=== PATIENT | male | born 2000 | race African-American/Black ===

== ENCOUNTER 2019-06-09 03:14 | Emergency (ER) | payer SELFPAY ==
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
[2019-06-09 03:18] VITALS: BP 141/89; PULSE 60; RESP 17; TEMP 36.7; O2SAT 100
[2019-06-09] MEDS: ONDANSETRON HCL ODT 4 MG TABLET 8 MG PO (04:25)
[2019-06-09] MEDS: HYDROMORPHONE HCL 1 MG/ML INJ IM (04:26)
[2019-06-09 04:31] VITALS: BP 144/78; PULSE 66; RESP 16; O2SAT 99
[2019-06-09 04:56] VITALS: TEMP 36.7
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
[2019-06-09 06:24] VITALS: BP 125/76; PULSE 59; RESP 14; TEMP 35.7; O2SAT 100
== END 2019-06-09 06:27 | disposition home or self-care (01) ==
PROVIDERS: Emergency Provider General Practice
DX: K04.7 Periapical abscess without sinus (principal)
CPT/HCPCS: 70486; 96372; 99284; A9270; J1170

== ENCOUNTER 2019-08-14 11:01 | Emergency (ER) | payer BC, SELFPAY ==
[2019-08-14] VITALS (10 sets, daily range): BP systolic 101–130; BP diastolic 55–87; PULSE 67–95; RESP 14–29; TEMP 36.2; O2SAT 97–100
[2019-08-14] MEDS: DEXTROSE 50% 25 GM/50 ML SYRINGE IV PUSH (11:05)
[2019-08-14] MEDS: ONDANSETRON INJ 4 MG/2 ML VIAL IV PUSH (11:19)
[2019-08-14] MEDS: SODIUM CHLORIDE 0.9% IV 1,000 ML 999 ML IV CONT ×2 (11:22→14:01)
--- NOTE | 2019-08-14 11:31 | PC.NURSE ---
Pt c/o severe pain at left upper arm IV site, note area tender and swollen. Warm blanket given for comfort. Preparing to reestablish IV and continue infusion.
[2019-08-14] MEDS: FAMOTIDINE 20 MG/2 ML VIAL IV PUSH (11:38)
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
[2019-08-14 12:16] LABS: Basophils Percent Auto 0.3 % (0.2-1.2); Eosinophils Percent Auto 0.3 % (0-4.4); Hematocrit 46.3 % (42.0-52.0); Hemoglobin 15.4 g/dL (14.0-18.0); Immature Granulocyte Absolute 0.05 K/mm3 (0.00-0.031); Immature Granulocyte Percent A 0.5 % (0-0.5); Lymphocytes Absolute Auto 1.78 K/mm3 (0.9-3.2); Lymphocytes Percent Auto 17.2 % (18.3-44.2); Mean Corpuscular HGB Conc 33.3 g/dl (32-36); Mean Corpuscular Hemoglobin 30.7 pg (26-34); Mean Corpuscular Volume 92.4 fl (80-100); Mean Platelet Volume 11.4 fl (7.4-10.4); Monocytes Absolute Auto 0.4 K/mm3 (0.1-0.6); Monocytes Percent Auto 3.6 % (2.6-8.5); Neutrophils Absolute Auto 8.1 K/mm3 (1.3-6.7); Neutrophils Percent Auto 78.1 % (45.5-73.1); Platelet Count Result 229 k/mm3 (150-375); Red Blood Count 5.01 M/mm3 (4.6-6.20); Red Cell Distribution Width 12.8 % (11.5-14.5); White Blood Count 10.3 K/mm3 (4.5-10.0)
[2019-08-14] MEDS: PROMETHAZINE HCL 25 MG/ML AMPUL 12.5 MG IV PUSH (12:19)
[2019-08-14] MEDS: MORPHINE SULFATE 4 MG/ML INJ IV PUSH (12:20)
[2019-08-14] MEDS: SODIUM CHLORIDE 0.9% IV 50 ML 125 ML (12:27)
[2019-08-14 12:29] LABS: Alanine Aminotransferase 24 U/L (4-50); Albumin Level 5.4 g/dL (3.5-5.1); Alkaline Phosphatase 95 U/L (38-126); Aspartate Amino Transferase 52 U/L (17-59); Bilirubin,Total 1.6 mg/dL (0.2-1.3); Blood Urea Nitrogen 15 mg/dL (9-20); Carbon Dioxide 25 mmol/L (22-30); Chloride 101 mmol/L (98-107); Estimated CRCL calculation 93 ml/min; Estimated Glomerular Filt Rate > 60; Glucose 233 mg/dL (75-110); Lipase 31 U/L (23-300); Potassium 4.1 mmol/L (3.4-5.0); Sodium 141 mmol/L (137-145)
--- NOTE | 2019-08-14 13:38 | PC.NURSE ---
Pt states he's feeling much better at present. Will attempt to urinate. States that he continues to feel weak. Pt has no nausea and has not vomited x approx 1 hr. Ice chips given po.
[2019-08-14 14:04] LABS: Add Urine Microscopic? YES; Appearance Urine Clear (Clear); Bacteria Urine Trace /hpf; Bilirubin Urine Negative (Negative); Blood Urine Negative (Negative); Color Urine Yellow (Yellow); Glucose Urine UA 2+ mg/dL (Negative); Ketones Urine 1+ mg/dL (Negative); Leukocyte Esterase Ur Negative LEU/UL (Negative); Mucus Urine Heavy /lpf; Nitrate Urine Negative (Negative); Protein Urine 2+ mg/dL (Negative); RBC Urine 0-2 /hpf (0-2); Specific Grav Ur 1.028 (1.001-1.035); WBC Urine 0-3 /hpf
== END 2019-08-14 16:33 | disposition home or self-care (01) ==
PROVIDERS: Emergency Provider Emergency Medicine
DX: R11.2 Nausea with vomiting, unspecified (principal); R19.7 Diarrhea, unspecified
CPT/HCPCS: 36415; 80053; 81001; 83690; 85025; 96361; 96374; 96375; 99284; J2270; J2405; J2550; J7030

== ENCOUNTER 2020-08-23 13:16 | Emergency (ER) | payer OTHER, SELFPAY ==
[2020-08-23 13:40] VITALS: BP 115/67; PULSE 103; RESP 20; TEMP 36.3; O2SAT 99
--- NOTE | 2020-08-23 13:44 | ED.NAVMDI ---
HPI - Nausea/Vomiting/Diarrhea General Chief complaint: Nausea/Vomiting/Diarrhea Stated complaint: Throwing Up Time Seen by Provider: 08/23/20 13:44 Source: patient Mode of arrival: ambulatory Limitations: no limitations History of Present Illness HPI Narrative: Randy Burnett is a 20-year-old male with no PMH who [facility] nausea vomiting diarrhea after eating suspicious pizza last night. States he started having vomiting after eating about 30 minutes and had last bout of diarrhea this morning at 630. States he still has some cramps but no further vomiting Related Data Allergies Allergy/AdvReac Type Severity Reaction Status Date / Time No Known Allergies Allergy Mild Verified 08/14/19 11:09 Review of Systems Review of Systems: Narrative: CONSTITUTIONAL: Denies fever, chills, sweats. EYES: Denies visual changes, redness, discharge. ENT: Denies rhinorrhea, congestion, sore throat, otalgia. CARDIOVASCULAR: Denies chest pain, palpitations, edema. RESPIRATORY: Denies dyspnea, wheezing, cough GASTROINTESTINAL: Denies abdominal pain, has nausea, vomiting, diarrhea. GENITOURINARY: Denies dysuria, hematuria, abnormal discharge SKIN: Denies rash or itching. NEUROLOGIC: Denies numbness, or focal weakness. PSYCHIATRIC: Denies anxiety or depression. [facility] Past Medical History Medical History Healthy adult Surgical History Surgical History No pertinent past surgical history Social History Social History Smoking status: Never smoker Alcohol intake: never Substance use: never Gender identity (if verbalized by the patient): Male Comments At time of signature, I agree with nursing past medical, surgical, social and family history. There is no relevant family history pertinent to the presenting complaint. Exam Narrative: Exam Narrative: GENERAL: This is a well-nourished, well-developed patient, in mild distress. HEAD: normocephalic, atraumatic. EYES: Sclera clear/white. Vision is grossly intact. EARS: External ears normal, auditory canals clear and without drainage, TMs normal without perforation. Hearing grossly intact. NOSE: External nose normal without nasal discharge, nares without redness, no rhinorrhea. THROAT: Mucous membranes moist, posterior pharynx NECK: Neck supple, non-tender CARDIOVASCULAR: mild tachycardia rate and rhythm without murmurs, gallops, or rubs. RESPIRATORY: Clear to auscultation. Breath sounds equal bilaterally. No wheezes, rales, or rhonchi. GASTROINTESTINAL: Abdomen soft, mild tenderness SKIN: warm, intact with no suspicious lesions or rash, good texture and turgor. NEURO: awake, alert, and oriented to person, place and time. There were no obvious focal neurologic abnormalities. Steady gait EXTREMITIES: Normal range of motion. BACK: Nontender without deformity Course Course Emergency Course: Randy Burnett is a 20-year-old male who comes to [facility] with nausea vomiting diarrhea that started last night after eating pizza; no vomiting since early this morning Given Bentyl for stomach cramps Patient encouraged hydration and given work note Vital Signs Vital signs: Vital Signs Temperature 97.4 F L 08/23/20 13:40 Pulse Rate 103 H 08/23/20 13:40 Respiratory Rate 08/23/20 13:40 Blood Pressure 115/67 08/23/20 13:40 Pulse Oximetry 99 08/23/20 13:40 Temperature 97.4 F L 08/23/20 13:40 Pulse Rate 103 H 08/23/20 13:40 Respiratory Rate 08/23/20 13:40 Blood Pressure 115/67 08/23/20 13:40 Pulse Oximetry 99 08/23/20 13:40 MDM - Nausea/Vomiting/Diarrhea Differential Diagnosis Differential diagnosis: Likely traveler's diarrhea, food poisoning, gastroenteritis, dehydration and other Critical Care Time Critical Care Time Critical Care Time: No Discharge Plan Discharge Clini
== END 2020-08-23 14:09 | disposition home or self-care (01) ==
PROVIDERS: Emergency Provider Nurse Practitioner
DX: K52.9 Noninfective gastroenteritis and colitis, unspecified (principal)
CPT/HCPCS: 99213; G0463

== ENCOUNTER 2020-11-21 15:17 | Emergency (ER) | payer OTHER, SELFPAY ==
[2020-11-21 15:24] VITALS: BP 122/66; PULSE 92; RESP 16; TEMP 37.1; O2SAT 99
--- NOTE | 2020-11-21 15:54 | ED.DENTAL ---
HPI - Dental/Oral General Chief complaint: Dental/Oral Stated complaint: tooth ache Source: patient and RN notes reviewed Limitations: no limitations History of Present Illness HPI Narrative: The patient, a smoker/nondrinker, presents with 2-week worsening of over 2-year history of tooth discomfort. He states he has broken teeth including when he did it himself;he also has several molars with pain, scant swelling. No fever, hoarseness, trismus, swelling now [mostly in the morning]; symptoms are mild, worse with eating and reportedly he has a dentist. Related Data Allergies Allergy/AdvReac Type Severity Reaction Status Date / Time No Known Allergies Allergy Mild Verified 11/21/20 15:29 Review of Systems Review of Systems: General/Constitutional: No weight loss,fever Eyes: N0: Redness,discharge Ears/Nose/Throat: No: Epistaxis,ear discharge Respiratory: Denies: Hemoptysis Gastrointestinal: No Vomiting, Bleeding-rectal Skin: No Lumps, eruption Neurologic: No Focal Weakness,Sz Hematologic: Denies: Petechiae/Purpura Psychiatric: No: Suicida ideationl All Other Systems: Reviewed and Negative PMFSH Past Medical History Medical History Healthy adult Surgical History Surgical History No pertinent past surgical history Social History Social History Smoking status: Never smoker Alcohol intake: never Substance use: never Gender identity (if verbalized by the patient): Male Comments At time of signature, agree with nursing past medical, surgical, social and family history. There is no relevant family history pertinent to the presenting complaint Exam Narrative: General Appearance: Well appearing, Well nourished, Obese EYE: PERRLA, EOMI, Conjunctiva clear Ears: External ear normal, Auditory canal normal Nose: Normal nose Mouth/Throat: Normal appearing (without sig. jaw swelling), Normal lips, MM moist, Uvula midline (scattered dental caries and fillings,, with rare fracture) Neck: Supple, No adenopathy Respiratory: Airway patent, No respiratory distress, Clear to auscultation Cardiovascular: RRR Musculoskeletal: Full ROM, Non tender, Normal strength Spine/Back: Normal ROM Skin: Warm, Dry, Normal color Neurological: A&O x3, Speech clear, CN II-XII intact Psychiatric: Normal mood, Normal affect Course Vital Signs Vital signs: Vital Signs Temperature 98.8 F 11/21/20 15:24 Pulse Rate 92 11/21/20 15:24 Respiratory Rate 16 11/21/20 15:24 Blood Pressure 122/66 11/21/20 15:24 Pulse Oximetry 99 11/21/20 15:24 Temperature 98.8 F 11/21/20 15:24 Pulse Rate 92 11/21/20 15:24 Respiratory Rate 16 11/21/20 15:24 Blood Pressure 122/66 11/21/20 15:24 Pulse Oximetry 99 11/21/20 15:24 Discharge Plan Discharge Clinical Impression: Toothache, Gingivitis Fracture of tooth Qualifiers: Encounter type: initial encounter Fracture type: closed Qualified Code(s): S02.5XXA - Fracture of tooth (traumatic), initial encounter for closed fracture Condition: Stable Instructions: Toothache (ED) Prescriptions: New amoxicillin-pot clavulanate [Augmentin] 500-125 mg tablet 1 tablet PO Q12H Qty: 10 RF: 0 lidocaine HCl [Lidocaine Viscous] 2 % solution 5 ml mucous membrane QID PRN (Reason: pain) Qty: 100 RF: 2 tramadol 50 mg tablet 50 - 75 mg PO Q6H PRN (Reason: pain) Qty: 30 RF: 0 Follow-up/Referrals: UNKNOWN,DOCTOR [Primary Care Provider] - Stand Alone Forms: Work/School Release IP
== END 2020-11-21 16:07 | disposition home or self-care (01) ==
PROVIDERS: Emergency Provider Emergency Medicine
DX: K08.89 Other specified disorders of teeth and supporting structures (principal); S02.5XXA Fracture of tooth (traumatic), initial encounter for closed fracture; X58.XXXA Exposure to other specified factors, initial encounter; K05.10 Chronic gingivitis, plaque induced
CPT/HCPCS: 99213; G0463

== ENCOUNTER 2020-12-25 13:52 | Emergency (ER) | payer OTHER, SELFPAY ==
[2020-12-25 14:00] VITALS: BP 120/72; PULSE 85; RESP 16; TEMP 37.2; O2SAT 99
== END 2020-12-25 15:13 | disposition left against medical advice (07) ==
PROVIDERS: Emergency Provider Emergency Medicine
DX: Z53.21 Procedure and treatment not carried out due to patient leaving prior to being seen by health care provider (principal)
CPT/HCPCS: 99199

== ENCOUNTER 2022-05-01 10:14 | Emergency (ER) | payer OTHER, SELFPAY ==
[2022-05-01 10:26] VITALS: BP 121/67; PULSE 98; RESP 16; TEMP 37.5; O2SAT 99
[2022-05-01 10:27] VITALS: BP 121/67; PULSE 98; RESP 16; TEMP 37.5; O2SAT 99
--- NOTE | 2022-05-01 10:31 | ED.URI ---
HPI - URI/Sore Throat General Chief Complaint: Upper Respiratory Infection Stated Complaint: Sore Throat Time Seen by Provider: 05/01/22 10:37 Source: patient and RN notes reviewed Mode of arrival: ambulatory Limitations: no limitations History of Present Illness HPI Narrative: 22-year-old male presents concern one-week history of sore throat, painful swallowing, cough. He denies headache, nausea, vomiting nasal congestion rhinorrhea. He denies taking any medications for his symptoms. He reports he recently traveled MD elicited complaint: cough and sore throat Related Data Allergies Allergy/AdvReac Type Severity Reaction Status Date / Time No Known Allergies Allergy Mild Verified 05/01/22 10:27 Review of Systems Review of Systems: CONSTITUTIONAL: Denies malaise, chills, sweats, or fever. EYES: Denies visual changes, redness, or discharge. ENT: Denies rhinorrhea, congestion, sinus pain, otalgia. Reports sore throat. CARDIOVASCULAR: Denies chest pain, palpitations, or edema. RESPIRATORY: Reports cough. Denies dyspnea. GASTROINTESTINAL: Denies abdominal pain, nausea, vomiting, diarrhea SKIN: Denies rash or itching. MUSCULOSKELETAL: Denies myalgia. NEUROLOGIC: Denies headache. All systems reviewed & are unremarkable except as noted in HPI and below PMFSH Past Medical History Medical History Healthy adult Surgical History Surgical History No pertinent past surgical history Social History Social History Smoking status: Never smoker Alcohol intake: never Substance use: never Gender identity (if verbalized by the patient): Male Comments At time of signature, agree with nursing past medical, surgical, social and family history. There is no relevant family history pertinent to the presenting complaint Exam Narrative: GENERAL: Well-appearing, well-nourished, and in no acute distress. HEAD: Normocephalic EYES: PERRLA, conjunctivae clear ENT: Nares clear. Mucous membranes moist. TM pearly blake with sharp light reflex bilaterally; no tragal tenderness. Oropharynx erythematous without lesions. Tonsils enlarged and without exudate, no drooling, no hoarseness, no trismus, uvula midline. NECK: Supple. No lymphadenopathy CHEST: Clear to auscultation, breath sounds equal. No wheezing, rhonchi, rales, or stridor. No respiratory distress, speaks in full sentences. HEART: Regular rate and rhythm. No murmur heard. SKIN: Warm, dry, no rash. NEURO: Alert and oriented x3. PSYCH: Normal mood and affect Course Course Emergency Course: Patient is aware of diagnosis, understands and agrees to treatment plan. Anticipatory guidance given. Patient agrees to follow-up as directed and is aware of reasons to seek care at the emergency department. Portions of this record may have been created with voice recognition software Level of Care: Express Care Visit Vital Signs Vital signs: Vital Signs Temperature 99.5 F 05/01/22 10:26 Pulse Rate 98 05/01/22 10:26 Respiratory Rate 16 05/01/22 10:26 Blood Pressure 121/67 05/01/22 10:26 Pulse Oximetry 99 05/01/22 10:26 Oxygen Delivery Room Air 05/01/22 10:26 Temperature 99.5 F 05/01/22 10:27 Pulse Rate 98 05/01/22 10:27 Respiratory Rate 16 05/01/22 10:27 Blood Pressure 121/67 05/01/22 10:27 Pulse Oximetry 99 05/01/22 10:27 Oxygen Delivery Room Air 05/01/22 10:27 Reviewed. MDM - URI/Sore Throat MDM Narrative Medical decision making narrative: Differential diagnosis considered: Lechuga virus, strep pharyngitis, allergic rhinitis, upper respiratory tract infection, sinusitis, rhinosinusitis, nasopharyngitis. viral pharyngitis, otitis media, otitis externa, pneumonia, bronchitis, viral cough syndrome, viral syndrome, and influenza. Exam findings show no acute concerns or changes; pat
== END 2022-05-01 10:50 | disposition home or self-care (01) ==
PROVIDERS: Emergency Provider Nurse Practitioner
DX: J02.0 Streptococcal pharyngitis (principal); J45.990 Exercise induced bronchospasm
CPT/HCPCS: 87880; 99213; G0463

== ENCOUNTER 2022-05-19 10:36 | Emergency (ER) | payer OTHER, SELFPAY ==
--- NOTE | 2022-05-19 10:44 | ED.URI ---
HPI - URI/Sore Throat General Chief Complaint: Upper Respiratory Infection Stated Complaint: Vomiting/Diarrhea/Sore Throat Time Seen by Provider: 05/19/22 10:44 Source: patient, RN notes reviewed and old records reviewed Mode of arrival: ambulatory Limitations: no limitations History of Present Illness HPI Narrative: 22-year-old male presents to the [facility] with complaints of vomiting /diarrhea since 0430 this morning. Has not taken anything for symptoms. Requesting a work Denies abdominal pain or chest pain. Denies fevers Related Data Allergies Allergy/AdvReac Type Severity Reaction Status Date / Time No Known Allergies Allergy Mild Verified 05/19/22 10:45 Review of Systems Review of Systems: All systems reviewed & are unremarkable except as noted in HPI and below Constitutional: Constitutional: Reports no additional constitutional complaints Eyes: Eyes: Reports no additional eye complaints ENT: Reports system reviewed and no additional complaints, except as documented Cardiovascular: Cardiovascular: Reports no additional cardiovascular complaints, Denies chest pain and Denies dyspnea Respiratory: Respiratory: Reports no additional respiratory complaints, Denies chest congestion, Denies cough and Denies dyspnea Gastrointestinal: Gastrointestinal: Reports as per HPI, Denies abdominal pain, Reports diarrhea, Reports nausea and Reports vomiting Musculoskeletal: Musculoskeletal: Reports no additional musculoskeletal complaints Integumentary/Breasts: Skin/Breast: Reports system reviewed and no additional complaints, except as docu Neurologic: Reports system reviewed and no additional complaints, except as documented Psychiatric: Psychiatric: Reports no additional psychiatric complaints Allergic/Immunologic: Allergic/Immunologic: Reports no additional allergic/immunologic complaints PMFSH Past Medical History Medical History Healthy adult Surgical History Surgical History No pertinent past surgical history Social History Social History Smoking status: Never smoker Alcohol intake: never Substance use: never Gender identity (if verbalized by the patient): Male Comments At the time of my signature, I reviewed and agree with the nursing past medical, surgical, social, and family history. There is no relevant family history pertinent to the patient complaint. Exam Const: General: cooperative, healthy appearing, comfortable, no acute distress, well developed, alert and well nourished Nutritional Appearance: well nourished Orientation/consciousness: patient oriented x3 Limitations: no limitations HENMT: Head: normal to inspection Ears: hearing grossly normal bilaterally and external ears normal Face/Nose/Sinus: Normal external nose present, Normal nares present, Normal nasal mucous membranes and turbinates present and normal facial exam Face and sinus: normal facial exam Mouth: Yes Normal oral and palatal mucosa present, Yes lip normal and Yes moist mucous membranes Throat: posterior oropharynx normal and uvula midline Eyes: General: appearance normal, both eyes and all related structures Alignment and Position: alignment normal Periorbital: periorbital findings normal Conjunctivae: conjunctivae normal Pupils: Equal, round and reactive pupils present EOM: EOMs intact bilaterally Neck: Neck: normal visual inspection, full ROM, no lymphadenopathy and no meningeal signs Chest: Chest palpation & inspection: normal inspection of the chest Resp: Effort & Inspection: normal respiratory effort and able to speak in complete sentences Auscultation: clear to auscultation bilaterally, no crackles, no rales, no rhonchi and no wheezes Cardio: Rate: regular rate Rhythm: regular rhythm GI: Inspection: non-distended GI Palp: Yes Soft to palpation
[2022-05-19 10:45] VITALS: BP 116/73; PULSE 88; RESP 16; TEMP 37.1; O2SAT 100; O2SAT 16
== END 2022-05-19 11:15 | disposition home or self-care (01) ==
PROVIDERS: Emergency Provider Nurse Practitioner
DX: K29.70 Gastritis, unspecified, without bleeding (principal); Z20.822 Contact with and (suspected) exposure to COVID-19
CPT/HCPCS: 87426; 87804; 99213; C9803; G0463

== ENCOUNTER 2022-07-17 16:02 | Emergency (ER) | payer OTHER, SELFPAY ==
[2022-07-17 16:15] VITALS: BP 121/64; PULSE 95; RESP 16; TEMP 36.6; O2SAT 99
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
== END 2022-07-17 17:07 | disposition home or self-care (01) ==
PROVIDERS: Emergency Provider Nurse Practitioner Family
DX: S39.012A Strain of muscle, fascia and tendon of lower back, initial encounter (principal); X58.XXXA Exposure to other specified factors, initial encounter
CPT/HCPCS: 99213; G0463

== ENCOUNTER 2023-05-06 11:13 | Emergency (ER) | payer OTHER, SELFPAY ==
[2023-05-06 11:34] VITALS: BP 132/83; PULSE 87; RESP 16; TEMP 37.4; O2SAT 99
--- NOTE | 2023-05-06 11:47 | ED.GENADULT ---
HPI - General Adult General Chief complaint: Upper Respiratory Infection Stated complaint: congestion,cough Source: patient, RN notes reviewed and old records reviewed Mode of arrival: ambulatory Limitations: no limitations History of Present Illness HPI narrative: 23-year-old male presents to [facility] with complaints cough, congestion, sinus pain, fever, sore throat that started Thursday. Patient taking [id number] medications with little relief. Patient denies chest pain, shortness of breath, weakness, Related Data Home Medications Medication Instructions Recorded Confirmed No Home Medications 05/06/23 05/06/23 Allergies Allergy/AdvReac Type Severity Reaction Status Date / Time No Known Allergies Allergy Mild Verified 05/06/23 12:05 Review of Systems Constitutional: Constitutional: Reports no additional constitutional complaints, Reports body ache(s), Denies chills, Reports fatigue, Denies fever(s) and Denies headache(s) Eyes: Eyes: Reports no additional eye complaints and Denies blurry vision ENT: Reports system reviewed and no additional complaints, except as documented, Denies vertigo, Denies dizziness, Denies ear discharge, Denies otalgia, Denies facial pain, Denies headache(s), Reports nasal congestion, Denies nasal discharge, Denies sinus pain, Denies sinus pressure and Reports sore throat Cardiovascular: Cardiovascular: Reports no additional cardiovascular complaints, Denies chest pain, Denies chest pain at rest, Denies rapid heart rate and Denies dyspnea Respiratory: Respiratory: Reports no additional respiratory complaints, Reports chest congestion, Reports cough, Denies pain on inspiration, Denies pain with cough and Denies dyspnea Gastrointestinal: Gastrointestinal: Denies abdominal pain, Denies diarrhea, Denies nausea and Denies vomiting Integumentary/Breasts: Skin/Breast: Denies rash Neurologic: Reports system reviewed and no additional complaints, except as documented, Denies vertigo, Denies dizziness and Denies headache(s) Endocrine: Endocrine: Denies fatigue PMFSH Past Medical History Medical History Healthy adult Surgical History Surgical History No pertinent past surgical history Social History Social History Smoking status: Never smoker Alcohol intake: never Substance use: never Gender identity (if verbalized by the patient): Male Comments At the time of my signature, I reviewed and agree with the nursing past medical, surgical, social, and family history. There is no relevant family history pertinent to the patient complaint. Exam Const: General: cooperative, healthy appearing, no acute distress and well nourished Nutritional Appearance: well nourished Orientation/consciousness: patient oriented x3 Limitations: no limitations HENMT: Head: normal to inspection and normocephalic Ears: external ears normal, TM's normal bilaterally, mastoids normal and Abnormal EAC present Face/Nose/Sinus: normal facial exam Face and sinus: normal facial exam Mouth: Yes Normal oral and palatal mucosa present, Yes oropharynx normal and Yes moist mucous membranes Throat: tonsils normal, uvula midline, posterior oropharynx abnormal and no uvular edema Eyes: General: appearance normal, both eyes and all related structures Sclera: sclerae normal Pupils: Equal, round and reactive pupils present Resp: Effort & Inspection: normal respiratory effort, able to speak in complete sentences, no audible wheezes, no cough, no respiratory distress and no retractions Auscultation: clear to auscultation bilaterally, no crackles, no rales, no rhonchi and no wheezes Cardio: Rate: regular rate Rhythm: regular rhythm Skin: General skin exam: normal color and no rashes or lesions noted Neuro: General: patient oriented x3 Cranial nerves:
== END 2023-05-06 12:10 | disposition home or self-care (01) ==
PROVIDERS: Emergency Provider Registered Nurse
DX: B34.9 Viral infection, unspecified (principal); Z20.822 Contact with and (suspected) exposure to COVID-19
CPT/HCPCS: 87081; 87426; 87804; 87880; 99213; G0463

== ENCOUNTER 2023-11-04 17:24 | Emergency (ER) | payer OTHER, SELFPAY ==
--- NOTE | ~2023-11-04 | XR_ITS ---
EXAMINATION: XR chest 2V DATE: 11/04/2023 18:14 INDICATION: 2 days of difficulty breathing TECHNIQUE: frontal and lateral views of the chest were obtained. COMPARISON: Chest radiograph dated 04/25/2014 FINDINGS: The lungs are clear with no focal airspace opacities, pulmonary edema, pleural effusion or pneumothor ax. The cardiomediastinal silhouette is normal. Mild thoracic dextrocurvature. IMPRESSION: 1. No acute cardiopulmonary disease. Reviewed, dictated and finalized at location A.
[2023-11-04 17:39] VITALS: BP 124/64; PULSE 81; RESP 16; TEMP 37.2; O2SAT 99
[2023-11-04 17:44] VITALS: BP 124/64; PULSE 81; RESP 16; TEMP 37.2; O2SAT 99
--- NOTE | 2023-11-04 18:01 | ECG_ITS ---
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
== END 2023-11-04 18:49 | disposition home or self-care (01) ==
PROVIDERS: Emergency Provider Nurse Practitioner
DX: R07.81 Pleurodynia (principal); F43.9 Reaction to severe stress, unspecified; F17.290 Nicotine dependence, other tobacco product, uncomplicated; J45.990 Exercise induced bronchospasm
CPT/HCPCS: 71046; 93005; 99213; G0463

== ENCOUNTER 2024-06-20 10:33 | Emergency (ER) | payer SELFPAY ==
--- NOTE | ~2024-06-20 | CT_ITS ---
EXAMINATION: CT brain wo con DATE: 06/20/2024 11:48 INDICATION: Suicide attempt by hanging TECHNIQUE: Computed tomography (CT) of the head was performed without intravenous contrast. Sagittal and coronal reconstructions were performed. The mA was adjusted according to patient size. Iterative reconstruction technique was employed. The dose-length product was 605.33 mGy-cm. COMPARISON: None FINDINGS: No acute intracranial hemorrhage, acute infarction or abnormal extra axial fluid collection. Ventricl es are normal and symmetric. No mass/mass effect. The orbits, paranasal sinuses and mastoid air cells are normal. IMPRESSION: 1. Normal head CT. Reviewed, dictated and finalized at location A. IMPRESSION: 1. Normal head CT.
--- NOTE | ~2024-06-20 | CT_ITS ---
EXAMINATION: CTA neck DATE: 06/20/2024 11:48 INDICATION: Suicide attempt by hanging TECHNIQUE: Computed tomographic angiography (CTA) of the neck was performed with 100 mL Omnipaque-350 intravenous contrast. Multiplanar reconstructions and maximum intensity projection 3D-reconstruction s were created by the technologist on a separate workstation. Automated exposure control and iterativ e reconstruction technique were employed. The dose-length product was mGy-cm. COMPARISON: None. FINDINGS: Visualized aortic arch and great vessels arising from the arch are normal in caliber with no dissecti on or evident atherosclerotic plaque. The left vertebral artery is mildly dominant. No evident verteb ral artery dissection. There is no evident atherosclerotic plaque with 0% stenosis of the right and l eft carotid bulbs relative to normal distal artery lumen diameter (NASCET criteria). The visualized u pper lungs are clear. There is soft tissue swelling and subcutaneous edema posterior to the lower cer vical spine which could be related to trauma from the reported attempted hanging. Cervical soft tissu es are otherwise unremarkable with patent airway. There is likely positional mild reversal of the nor mal cervical lordosis. Otherwise normal alignment with normal craniocervical junction and no spondylo listhesis or facet subluxation. Vertebral body and disc heights are normal. No acute fracture. No caitlin dent hemodynamically significant stenosis, aneurysm or dissection the visualized central intracranial arteries. Bilateral P1 and A1 segments are patent. There are also patent bilateral posterior communi cating arteries. IMPRESSION: 1. Unremarkable cervical CT angiogram with no evident arterial dissection and with 0% stenosis of the right and left carotid bulbs relative to normal distal artery lumen diameter (NASCET criteria). 2. Mild reversal of the normal cervical lordosis and subcutaneous edema in the soft tissues posterior to the lower cervical spine which may relate to reported history of attempted healing. No acute osse ous abnormality. Reviewed, dictated and finalized at location A. IMPRESSION: 1. Unremarkable cervical CT angiogram with no evident arterial dissection and w ith 0% stenosis of the right and left carotid bulbs relative to normal distal a rtery lumen diameter (NASCET criteria). 2. Mild reversal of the normal cervical lordosis and subcutaneous edema in the soft tissues posterior to the lower cervical spine which may relate to reported history of attempted healing. No acute osseous abnormality.
--- NOTE | 2024-06-20 11:03 | ED_ITS ---
HPI - Psych General Chief Complaint: Psychiatric Symptoms <Jessica Azevedo APRN - Last Filed: 06/20/24 19:43> Stated Complaint: SI <Jessica Azevedo APRN - Last Filed: 06/20/24 19:43> Time Seen by Provider: 06/20/24 10:33 <Jessica Azevedo APRN - Last Filed: 06/20/24 19:43> History of Present Illness HPI Narrative: Patient is a 24-year-old male who presents to the ER following a suicide attempt. He reports last night he attempted to hang himself, but the rope broke. Patient denies any voice changes, difficulty swallowing, throat welch on his neck, but he does have loss of memory. This morning patient called his parents to tell them what happen. Patient's mother attempted to call him back 1 hour later and he denies into the phone so she called the police and they arrived at patient's apartment together. Police in patient's mother enter the apartment and found patient lying on the floor in the bathroom. 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 Patient's mother reports patient started screaming and her police, then slammed his arms down on a hand rail and broken off the wall. Patient reports he does not have any recollection of this event. He reports having a previous mental health episode where he was evaluated at [facility]. Patient denies taking any daily medications, but endorses rare headaches. He denies any chest pain, shortness of breath, recent fevers, headache, nausea or vomiting. <Jessica Azevedo APRN - Last Filed: 06/20/24 19:43> Related Data Allergies/Adverse Reactions: Allergies Allergy/AdvReac Type Severity Reaction Status Date / Time No Known Allergies Allergy Mild Verified 06/20/24 11:27 <Jessica Azevedo APRN - Last Filed: 06/20/24 19:43> Review of Systems 2 Review of Systems: All systems reviewed & are unremarkable except as noted in HPI and below <Jessica Azevedo APRN - Last Filed: 06/20/24 19:43> [facility] Past Medical History Medical History: Medical History Exercise-induced asthma Healthy adult <Jessica Azevedo APRN - Last Filed: 06/20/24 19:43> Surgical History Surgical History: Surgical History No pertinent past surgical history <Jessica Azevedo APRN - Last Filed: 06/20/24 19:43> Family History Family History: Family History Mother Family history non-contributory <Jessica Azevedo APRN - Last Filed: 06/20/24 19:43> Social History Social History: Social History Smoking status: Current every day smoker Tobacco type: e-cigarettes/vaping Alcohol intake: never Substance use type: marijuana Gender identity (if verbalized by the patient): Male Spiritual care concerns: No <Jessica Azevedo APRN - Last Filed: 06/20/24 19:43> Exam 2 Narrative: GENERAL: Well appearing, well-nourished, non-toxic, in no acute distress. HEAD: Normocephalic, atraumatic. NECK: Supple. No adenopathy, no masses. RESPIRATORY: Airway patent, respirations nonlabored. Clear to auscultation bilaterally, no rales, rhonchi, wheezing. CARDIOVASCULAR: Regular rate and rhythm without murmurs, rubs, or gallops. Peripheral pulses 2+ and equal bilaterally. ABDOMINAL: Soft, nontender, nondistended, no hepatosplenomegaly. Normoactive BS. MUSCULOSKELETAL: Moves all extremities. Strength/ROM intact without gross deformities. SKIN: Warm, dry, normal color. No rashes. NEURO: A&O X3. Speech clear. Cranial nerves II-XII intact. No ataxic movements. PSYCHIATRIC: Flat affect. Normal interaction. <Jessica Azevedo APRN - Last Filed: 06/20/24 19:43> Course TAX EXPERT/PA Physician Supervision This visit was performed by both a physician and an APC. I performed all aspects of the MDM as documented. <Ishmael Serrano MD - Last Filed: 06/23/24 22:38> Vital Signs Vital signs: Vital Signs Temperature 98.9 F 06/20/24 11:08 Pulse Rate 89 06/20/24 11:08 Respiratory Rate 16 06/20/24 11:08 Blood Pressure 111/70 06/20/24 11:08 Pulse Oximetry 99 06/20/24 11:08 Oxygen Delivery Room Air 06/20/24 11:08 Temperature 98.5 F 06/21/24 15:37 Pulse Rate 78 06/21/24 15:37 Respiratory Rate 16 06/21/24 15:37 Blood Pressure 123/82 06/21/24 15:37 Pulse Oximetry 99 06/21/24 15:37 Oxygen Delivery Room Air 06/20/24 11:08 <Jessica Azevedo APRN - Last Filed: 06/20/24 19:43> Vital Signs Temperature 98.9 F 06/20/24 11:08 Pulse Rate 89 06/20/24 11:08 Respiratory Rate 16 06/20/24 11:08 Blood Pressure 111/70 06/20/24 11:08 Pulse Oximetry 99 06/20/24 11:08 Oxygen Delivery Room Air 06/20/24 11:08 Temperature 98.5 F 06/21/24 15:37 Pulse Rate 78 06/21/24 15:37 Respiratory Rate 16 06/21/24 15:37 Blood Pressure 123/82 06/21/24 15:37 Pulse Oximetry 99 06/21/24 15:37 Oxygen Delivery Room Air 06/20/24 11:08 <Saira Buckner PA-C - Last Filed: 06/21/24 02:49> Vital Signs Temperature 98.9 F 06/20/24 11:08 Pulse Rate 89 06/20/24 11:08 Respiratory Rate 16 06/20/24 11:08 Blood Pressure 111/70 06/20/24 11:08 Pulse Oximetry 99 06/20/24 11:08 Oxygen Delivery Room Air 06/20/24 11:08 Temperature 98.5 F 06/21/24 15:37 Pulse Rate 78 06/21/24 15:37 Respiratory Rate 16 06/21/24 15:37 Blood Pressure 123/82 06/21/24 15:37 Pulse Oximetry 99 06/21/24 15:37 Oxygen Delivery Room Air 06/20/24 11:08 <Ishmael Serrano MD - Last Filed: 06/23/24 22:38> MDM - Psych MDM Narrative Medical decision making narrative: Patient is a 24-year-old male who presents to the ER following a suicide attempt. He reports last night he attempted to hang himself, but the rope broke. Patient denies any voice changes, difficulty swallowing, throat welch on his neck, but he does have loss of memory. This morning patient called his parents to tell them what happen. Patient's mother attempted to call him back 1 hour later and he denies into the phone so she called the police and they arrived at patient's apartment together. Police in patient's mother enter the apartment and found patient lying on the floor in the bathroom. 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 Patient's mother reports patient started screaming and her police, then slammed his arms down on a hand rail and broken off the wall. Patient reports he does not have any recollection of this event. He reports having a previous mental health episode where he was evaluated at [facility]. Patient denies taking any daily medications, but endorses rare headaches. He denies any chest pain, shortness of breath, recent fevers, headache, nausea or vomiting. Labs Ordered: CBC, CMP, UA, UDS, TSH, salicylate level, Tylenol level, ethanol Imaging Ordered: CTA neck, CT brain Medications Ordered: None necessary Results: Patient's CTA indicates 1. Unremarkable cervical CT angiogram with no evident arterial dissection and with 0% stenosis of the right and left carotid bulbs relative to normal distal artery lumen diameter (NASCET criteria). 2. Mild reversal of the normal cervical lordosis and subcutaneous edema in the soft tissues posterior to the lower cervical spine which may relate to reported history of attempted healing. No acute osseous abnormality. Pt's CT brain indicates No acute intracranial hemorrhage, acute infarction or abnormal extra axial fluid collection. Ventricles are normal and symmetric. No mass/mass effect. The orbits, paranasal sinuses and mastoid air cells are normal. Diagnosis: Suicidal ideation, suicide attempt Consults: psychiatry intake 1300- Pt is medically clear for intake to assess him. 1430- Pt was evaluated by intake. They recommend pt be voluntarily admitted to a psychiatric facility. Pt continues to change his mind about wanting to be admitted, so TAX EXPERT and police wrote an affidavit to have an involuntary admission. 1899- Pt waiting for admission to a psychiatric facility. Care signed out to Saira Buckner PA-C. <Jessica OlmosFrancis Azevedo, WIRE SPOOLER - Last Filed: 06/20/24 19:43> Patient is a 24-year-old male who presents to the ER following a suicide attempt. He reports last night he attempted to hang himself, but the rope broke. Patient denies any voice changes, difficulty swallowing, throat welch on his neck, but he does have loss of memory. This morning patient called his parents to tell them what happen. Patient's mother attempted to call him back 1 hour later and he denies into the phone so she called the police and they arrived at patient's apartment together. Police in patient's mother enter the apartment and found patient lying on the floor in the bathroom. 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 Patient's mother reports patient started screaming and her police, then slammed his arms down on a hand rail and broken off the wall. Patient reports he does not have any recollection of this event. He reports having a previous mental health episode where he was evaluated at [facility]. Patient denies taking any daily medications, but endorses rare headaches. He denies any chest pain, shortness of breath, recent fevers, headache, nausea or vomiting. Labs Ordered: CBC, CMP, UA, UDS, TSH, salicylate level, Tylenol level, ethanol Imaging Ordered: CTA neck, CT brain Medications Ordered: None necessary Results: Patient's CTA indicates 1. Unremarkable cervical CT angiogram with no evident arterial dissection and with 0% stenosis of the right and left carotid bulbs relative to normal distal artery lumen diameter (NASCET criteria). 2. Mild reversal of the normal cervical lordosis and subcutaneous edema in the soft tissues posterior to the lower cervical spine which may relate to reported history of attempted healing. No acute osseous abnormality. Pt's CT brain indicates No acute intracranial hemorrhage, acute infarction or abnormal extra axial fluid collection. Ventricles are normal and symmetric. No mass/mass effect. The orbits, paranasal sinuses and mastoid air cells are normal. Diagnosis: Suicidal ideation, suicide attempt Consults: psychiatry intake 1300- Pt is medically clear for intake to assess him. 1430- Pt was evaluated by intake. They recommend pt be voluntarily admitted to a psychiatric facility. Pt continues to change his mind about wanting to be admitted, so TAX EXPERT and police wrote an affidavit to have an involuntary admission. 1900- Pt waiting for admission to a psychiatric facility. Care signed out to Saira Buckner PA-C. RG - Care was signed out to myself at shift change. Patient has been resting comfortably throughout the night, has been calm and cooperative. Did have a brief episode of becoming slightly agitated. Was able to deescalate verbally. Offered to give anxiety medication, however patient declined. Still awaiting bed placement. May have a bed at [facility] in the morning. Care was signed out to Dr. Davis at shift change pending bed placement. <Saira Buckner PA-C - Last Filed: 06/21/24 02:49> Differential Diagnosis Differential diagnosis: Likely acute psychosis, suicidal ideation, bipolar disorder, depression and drug-induced psychotic disorder <Jessica Azevedo APRN - Last Filed: 06/20/24 19:43> Lab Data Attestation: I reviewed the patient's lab results. <Jessica Azevedo APRN - Last Filed: 06/20/24 19:43> Result diagrams: 06/20/24 11:11 06/20/24 11:11 <Jessica Azevedo APRN - Last Filed: 06/20/24 19:43> Labs: Lab Results 06/20/24 06/20/24 06/20/24 Range/Units 11:11 12:06 13:46 WBC 6.1 (4.5-10.0) K/mm3 RBC 4.79 (4.6-6.20) M/mm3 Hgb 14.8 (14.0-18.0) g/dL Hct 44.2 (42.0-52.0) % MCV 92.3 (80-100) fl MCH 30.9 (26-34) pg MCHC 33.5 (32-36) g/dl RDW 12.7 (11.5-14.5) % Plt Count 214 (150-375) k/mm3 MPV 9.9 (7.4-10.4) fl Immature Gran % (Auto) 0.2 (0-0.5) % Neut % (Auto) 69.7 (45.5-73.1) % Lymph % (Auto) 25.7 (18.3-44.2) % Ware % (Auto) 3.9 (2.6-8.5) % Eos % (Auto) 0.3 (0-4.4) % Baso % (Auto) 0.2 (0.2-1.2) % Lymph # (Auto) 1.57 (0.9-3.2) K/mm3 Ware # (Auto) 0.2 (0.1-0.6) K/mm3 Eos # (Auto) 0.0 (0-0.3) K/mm3 Baso # (Auto) 0.0 (0.0-0.1) K/mm3 Abs Immat Gran (auto) 0.01 (0.00-0.031) K/mm3 Absolute Neuts (auto) 4.3 (1.3-6.7) K/mm3 Absolute Nucleated RBC 0.000 (0.0-0.012) K/mm3 Nucleated RBC % 0.0 (0.0-0.2) % Sodium 140 (137-145) mmol/L Potassium 4.4 (3.4-5.0) mmol/L Chloride 105 (98-107) mmol/L Carbon Dioxide 24 (22-30) mmol/L Anion Gap 11 (4-12) mmol/L BUN 16 (9-20) mg/dL Creatinine 0.96 (0.7-1.3) mg/dL Estim Creat Clear Calc 92 ml/min Estimated GFR > 60 (59 - ) Glucose 89 (65-110) mg/dL Calcium 9.4 (8.4-10.2) mg/dL Total Bilirubin 1.6 H (0.2-1.3) mg/dL AST 30 (17-59) U/L ALT 17 (6-50) U/L Alkaline Phosphatase 63 (38-126) U/L Total Protein 8.0 (6.3-8.2) g/dL Albumin 4.9 (3.5-5.1) g/dL TSH 0.111 L (0.465-4.680) uIU/mL Urine Color Yellow (Yellow) Urine Appearance Clear (Clear) Urine pH 6.0 (5.0-9.0) Ur Specific [place] > 1.045 H (1.001-1.035) Urine Protein Trace (Negative) mg/dL Urine Glucose (UA) Negative (Negative) mg/dL Urine Ketones Trace H (Negative) mg/dL Ur Blood (Man) Negative (Negative) Urine Nitrate Negative (Negative) Urine Bilirubin Negative (Negative) Urine Urobilinogen 0.2 (<2.0) mg/dL Leukocyte Esterase Rfl Negative (Negative) SANAM/UL Urine RBC 0-2 (0-2) /hpf Urine WBC 0-5 (0-3) /hpf Ur Squamous Epith Cells None seen (Few) /hpf Urine Bacteria None seen /hpf Urine Casts 0-2 Salicylates < 1.0 L (2-20) mg/dL Urine Opiates Screen Negative (Negative) Urine Methadone Screen Negative (Negative) Acetaminophen < 10 L (10-30) ug/mL Ur Barbiturates Screen Negative (Negative) Ur Phencyclidine Scrn Negative (Negative) Ur Amphetamine Screen Negative (Negative) U Benzodiazepines Scrn Negative (Negative) Urine Cocaine Screen Negative (Negative) U Cannabinoids Screen Positive A (Negative) Ethyl Alcohol < 10 (<10) mg/dL SARS-CoV-2 RNA (RT-PCR) Negative (Negative) <Jessica Azevedo, WIRE SPOOLER - Last Filed: 06/20/24 19:43> Lab Results 06/20/24 06/20/24 06/20/24 Range/Units 11:11 12:06 13:46 WBC 6.1 (4.5-10.0) K/mm3 RBC 4.79 (4.6-6.20) M/mm3 Hgb 14.8 (14.0-18.0) g/dL Hct 44.2 (42.0-52.0) % MCV 92.3 (80-100) fl MCH 30.9 (26-34) pg MCHC 33.5 (32-36) g/dl RDW 12.7 (11.5-14.5) % Plt Count 214 (150-375) k/mm3 MPV 9.9 (7.4-10.4) fl Immature Gran % (Auto) 0.2 (0-0.5) % Neut % (Auto) 69.7 (45.5-73.1) % Lymph % (Auto) 25.7 (18.3-44.2) % Ware % (Auto) 3.9 (2.6-8.5) % Eos % (Auto) 0.3 (0-4.4) % Baso % (Auto) 0.2 (0.2-1.2) % Lymph # (Auto) 1.57 (0.9-3.2) K/mm3 Ware # (Auto) 0.2 (0.1-0.6) K/mm3 Eos # (Auto) 0.0 (0-0.3) K/mm3 Baso # (Auto) 0.0 (0.0-0.1) K/mm3 Abs Immat Gran (auto) 0.01 (0.00-0.031) K/mm3 Absolute Neuts (auto) 4.3 (1.3-6.7) K/mm3 Absolute Nucleated RBC 0.000 (0.0-0.012) K/mm3 Nucleated RBC % 0.0 (0.0-0.2) % Sodium 140 (137-145) mmol/L Potassium 4.4 (3.4-5.0) mmol/L Chloride 105 (98-107) mmol/L Carbon Dioxide 24 (22-30) mmol/L Anion Gap 11 (4-12) mmol/L BUN 16 (9-20) mg/dL Creatinine 0.96 (0.7-1.3) mg/dL Estim Creat Clear Calc 92 ml/min Estimated GFR > 60 (59 - ) Glucose 89 (65-110) mg/dL Calcium 9.4 (8.4-10.2) mg/dL Total Bilirubin 1.6 H (0.2-1.3) mg/dL AST 30 (17-59) U/L ALT 17 (6-50) U/L Alkaline Phosphatase 63 (38-126) U/L Total Protein 8.0 (6.3-8.2) g/dL Albumin 4.9 (3.5-5.1) g/dL TSH 0.111 L (0.465-4.680) uIU/mL Urine Color Yellow (Yellow) Urine Appearance Clear (Clear) Urine pH 6.0 (5.0-9.0) Ur Specific [place] > 1.045 H (1.001-1.035) Urine Protein Trace (Negative) mg/dL Urine Glucose (UA) Negative (Negative) mg/dL Urine Ketones Trace H (Negative) mg/dL Ur Blood (Man) Negative (Negative) Urine Nitrate Negative (Negative) Urine Bilirubin Negative (Negative) Urine Urobilinogen 0.2 (<2.0) mg/dL Leukocyte Esterase Rfl Negative (Negative) SANAM/UL Urine RBC 0-2 (0-2) /hpf Urine WBC 0-5 (0-3) /hpf Ur Squamous Epith Cells None seen (Few) /hpf Urine Bacteria None seen /hpf Urine Casts 0-2 Salicylates < 1.0 L (2-20) mg/dL Urine Opiates Screen Negative (Negative) Urine Methadone Screen Negative (Negative) Acetaminophen < 10 L (10-30) ug/mL Ur Barbiturates Screen Negative (Negative) Ur Phencyclidine Scrn Negative (Negative) Ur Amphetamine Screen Negative (Negative) U Benzodiazepines Scrn Negative (Negative) Urine Cocaine Screen Negative (Negative) U Cannabinoids Screen Positive A (Negative) Ethyl Alcohol < 10 (<10) mg/dL SARS-CoV-2 RNA (RT-PCR) Negative (Negative) <Saira Buckner PA-C - Last Filed: 06/21/24 02:49> Lab Results 06/20/24 06/20/24 06/20/24 Range/Units 11:11 12:06 13:46 WBC 6.1 (4.5-10.0) K/mm3 RBC 4.79 (4.6-6.20) M/mm3 Hgb 14.8 (14.0-18.0) g/dL Hct 44.2 (42.0-52.0) % MCV 92.3 (80-100) fl MCH 30.9 (26-34) pg MCHC 33.5 (32-36) g/dl RDW 12.7 (11.5-14.5) % Plt Count 214 (150-375) k/mm3 MPV 9.9 (7.4-10.4) fl Immature Gran % (Auto) 0.2 (0-0.5) % Neut % (Auto) 69.7 (45.5-73.1) % Lymph % (Auto) 25.7 (18.3-44.2) % Ware % (Auto) 3.9 (2.6-8.5) % Eos % (Auto) 0.3 (0-4.4) % Baso % (Auto) 0.2 (0.2-1.2) % Lymph # (Auto) 1.57 (0.9-3.2) K/mm3 Ware # (Auto) 0.2 (0.1-0.6) K/mm3 Eos # (Auto) 0.0 (0-0.3) K/mm3 Baso # (Auto) 0.0 (0.0-0.1) K/mm3 Abs Immat Gran (auto) 0.01 (0.00-0.031) K/mm3 Absolute Neuts (auto) 4.3 (1.3-6.7) K/mm3 Absolute Nucleated RBC 0.000 (0.0-0.012) K/mm3 Nucleated RBC % 0.0 (0.0-0.2) % Sodium 140 (137-145) mmol/L Potassium 4.4 (3.4-5.0) mmol/L Chloride 105 (98-107) mmol/L Carbon Dioxide 24 (22-30) mmol/L Anion Gap 11 (4-12) mmol/L BUN 16 (9-20) mg/dL Creatinine 0.96 (0.7-1.3) mg/dL Estim Creat Clear Calc 92 ml/min Estimated GFR > 60 (59 - ) Glucose 89 (65-110) mg/dL Calcium 9.4 (8.4-10.2) mg/dL Total Bilirubin 1.6 H (0.2-1.3) mg/dL AST 30 (17-59) U/L ALT 17 (6-50) U/L Alkaline Phosphatase 63 (38-126) U/L Total Protein 8.0 (6.3-8.2) g/dL Albumin 4.9 (3.5-5.1) g/dL TSH 0.111 L (0.465-4.680) uIU/mL Urine Color Yellow (Yellow) Urine Appearance Clear (Clear) Urine pH 6.0 (5.0-9.0) Ur Specific [place] > 1.045 H (1.001-1.035) Urine Protein Trace (Negative) mg/dL Urine Glucose (UA) Negative (Negative) mg/dL Urine Ketones Trace H (Negative) mg/dL Ur Blood (Man) Negative (Negative) Urine Nitrate Negative (Negative) Urine Bilirubin Negative (Negative) Urine Urobilinogen 0.2 (<2.0) mg/dL Leukocyte Esterase Rfl Negative (Negative) SANAM/UL Urine RBC 0-2 (0-2) /hpf Urine WBC 0-5 (0-3) /hpf Ur Squamous Epith Cells None seen (Few) /hpf Urine Bacteria None seen /hpf Urine Casts 0-2 Salicylates < 1.0 L (2-20) mg/dL Urine Opiates Screen Negative (Negative) Urine Methadone Screen Negative (Negative) Acetaminophen < 10 L (10-30) ug/mL Ur Barbiturates Screen Negative (Negative) Ur Phencyclidine Scrn Negative (Negative) Ur Amphetamine Screen Negative (Negative) U Benzodiazepines Scrn Negative (Negative) Urine Cocaine Screen Negative (Negative) U Cannabinoids Screen Positive A (Negative) Ethyl Alcohol < 10 (<10) mg/dL SARS-CoV-2 RNA (RT-PCR) Negative (Negative) <Ishmael Serrano MD - Last Filed: 06/23/24 22:38> Imaging Data Attestation: I personally reviewed and interpreted this imaging study as follows: < Jessica Azevedo APRN - Last Filed: 06/20/24 19:43> Radiologist's impression: Impressions Head CT 06/20/24 11:56 IMPRESSION: 1. Normal head CT. Neck CTA 06/20/24 11:58 IMPRESSION: 1. Unremarkable cervical CT angiogram with no evident arterial dissection and with 0% stenosis of the right and left carotid bulbs relative to normal distal artery lumen diameter (NASCET criteria). 2. Mild reversal of the normal cervical lordosis and subcutaneous edema in the soft tissues posterior to the lower cervical spine which may relate to reported history of attempted healing. No acute osseous abnormality. <Jessica Azevedo APRN - Last Filed: 06/20/24 19:43> Discharge Plan Discharge Clinical Impression: Suicide attempt by hanging, Suicidal ideation <Jessica Azevedo APRN - Last Filed: 06/20/24 19:43> Patient Disposition: Psychiatric Hosp <Jessica Azevedo APRN - Last Filed: 06/20/24 19:43> Condition: Serious <Jessica Azevedo APRN - Last Filed: 06/20/24 19:43> Patient Language: Irish <Jessica Azevedo APRN - Last Filed: 06/20/24 19:43> Prescriptions: No Action methylprednisolone [Medrol (Moises)] 4 mg tablets,dose pack See Rx Instructions .ROUTE .COMPLEX Qty: 21 0RF Rx Instructions: orally per package directions <Jessica Azevedo APRN - Last Filed: 06/20/24 19:43> Follow-up/Referrals: PHYSICIAN,BENZENE WASHER OPERATOR [Non-Staff] - <Jessica Azevedo APRN - Last Filed: 06/20/24 19:43> Sign Out Sign Out Data: Patient Sign Out occurred on 06/21/24 at 03:26. Patient's care was discussed, and care was transferred from Saira Buckner PA-C to Jordan Davis MD. <Jessica Azevedo APRN - Last Filed: 06/20/24 19:43>
--- NOTE | 2024-06-20 11:03 | ECG_ITS ---
Test Date: 2024-06-20 11:29:27 Measurements Intervals Lehr Rate: 72 P: 66 MS: 166 QRS: 73 QRSD: 86 T: 67 QT: 368 QTc: 403 Interpretive Statements SINUS RHYTHM POSSIBLE LEFT ATRIAL ENLARGEMENT [-0.1mV P WAVE IN V1/V2] INCOMPLETE RIGHT BUNDLE BRANCH BLOCK EARLY REPOLARIZATION [ST ELEVATION WITH NORMALLY INFLECTED T WAVE] Compared to ECG 11/04/2023 18:10:33 NO SIGNIFICANT CHANGES Electronically Signed On 06-21-2024 16:35:54 CDT by Mary Grant M.D.
[2024-06-20 11:08] VITALS: BP 111/70; PULSE 89; RESP 16; TEMP 37.2; O2SAT 99
[2024-06-20 11:18] LABS: Basophils Percent Auto 0.2 % (0.2-1.2); Eosinophils Percent Auto 0.3 % (0-4.4); Hematocrit 44.2 % (42.0-52.0); Hemoglobin 14.8 g/dL (14.0-18.0); Immature Granulocyte Absolute 0.01 K/mm3 (0.00-0.031); Immature Granulocyte Percent A 0.2 % (0-0.5); Lymphocytes Absolute Auto 1.57 K/mm3 (0.9-3.2); Lymphocytes Percent Auto 25.7 % (18.3-44.2); Mean Corpuscular HGB Conc 33.5 g/dl (32-36); Mean Corpuscular Hemoglobin 30.9 pg (26-34); Mean Corpuscular Volume 92.3 fl (80-100); Mean Platelet Volume 9.9 fl (7.4-10.4); Monocytes Absolute Auto 0.2 K/mm3 (0.1-0.6); Monocytes Percent Auto 3.9 % (2.6-8.5); Neutrophils Absolute Auto 4.3 K/mm3 (1.3-6.7); Neutrophils Percent Auto 69.7 % (45.5-73.1); Platelet Count Result 214 k/mm3 (150-375); Red Blood Count 4.79 M/mm3 (4.6-6.20); Red Cell Distribution Width 12.7 % (11.5-14.5); White Blood Count 6.1 K/mm3 (4.5-10.0)
[2024-06-20 11:27] LABS: Acetaminophen < 10 ug/mL (10-30); Alanine Aminotransferase 17 U/L (6-50); Albumin Level 4.9 g/dL (3.5-5.1); Alkaline Phosphatase 63 U/L (38-126); Anion Gap 11 mmol/L (4-12); Aspartate Amino Transferase 30 U/L (17-59); Bilirubin,Total 1.6 mg/dL (0.2-1.3); Blood Urea Nitrogen 16 mg/dL (9-20); Calcium 9.4 mg/dL (8.4-10.2); Carbon Dioxide 24 mmol/L (22-30); Chloride 105 mmol/L (98-107); Estimated CRCL calculation 92 ml/min; Estimated Glomerular Filt Rate > 60; Ethanol < 10 mg/dL (<10); Glucose 89 mg/dL (65-110); Potassium 4.4 mmol/L (3.4-5.0); Salicylate < 1.0 mg/dL (2-20); Sodium 140 mmol/L (137-145)
[2024-06-20 11:58] LABS: Thyroid Stimulating Hormone 0.111 uIU/mL (0.465-4.680)
[2024-06-20 12:23] LABS: Add Urine Microscopic? YES; Appearance Urine Clear (Clear); Bacteria Urine None Seen /hpf; Bilirubin Urine Negative (Negative); Blood Urine Negative (Negative); Color Urine Yellow (Yellow); Glucose Urine UA Negative (Negative); Ketones Urine Trace mg/dL (Negative); Leukocyte Esterase Ur Negative LEU/UL (Negative); Nitrate Urine Negative (Negative); Non Pathogenic Casts 0-2; Protein Urine Trace mg/dL (Negative); RBC Urine 0-2 /hpf (0-2); Specific Grav Ur > 1.045 (1.001-1.035); Squamous Epithelial Cell Urine None Seen /hpf (Few); Urobilinogen Urine 0.2 mg/dL (<2.0); WBC Urine 0-5 /hpf (0-3)
[2024-06-20 12:47] LABS: Benzodiazepines Screen Urine Negative (Negative)
[2024-06-20 12:49] LABS: Barbiturate Screen Urine Negative (Negative)
[2024-06-20 12:56] LABS: Amphetamine Screen Urine Negative (Negative); Cannabinoid Screen Urine Positive (Negative); Cocaine Screen Urine Negative (Negative); Methadone Screen Urine Negative (Negative); Opiate Screen Urine Negative (Negative); Phencyclidine Screen Urine Negative (Negative)
--- OUTSIDE RECORDS SUMMARY | 2024-06-20 13:36 | XMS_ITS | Referral Summary ---
Author Organization [facility] Address [address] [place] [id number] Care Team Providers Care Caddy Packer Name Role Phone No, Physician Primary Care Provider [phone] Allergies No known active allergies Medications diazePAM (VALIUM) 5 mg tablet Take 1 tablet (5 mg total) by mouth every 6 (six) hours as needed for muscle spasms for up to 7 days 28 tablet 11/03/2023 Active lidocaine (ASPERCREME) 4 % adhesive patch,medicated Place 1 patch on the skin daily 30 patch 11/03/2023 Active Social History Tobacco Use Types Packs/Day Years Used Date Smoking Tobacco: Never Tobacco Cessation:Counseling Given: Not Answered Alcohol Use Standard Drinks/Week Comments Not Currently 0 (1 standard drink = 0.6 oz pur e alcohol) Personal Safety Answer Date Recorded Have you ever been in or are you currently in a harmful physical or emotional relationship or is someone making you feel afraid or unsafe? 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 Gender Identity Not on file Sexual Orientation Not on file Last Filed Vital Signs Vital Sign Reading Time Taken Comments Blood Pressure 121/76 11/03/2023 11:55 AM CDT Pulse 65 11/03/2023 11:55 AM CDT Temperature 36.6 C (97.8 F) 11/03/2023 9:23 AM CDT Respiratory Rate 21 11/03/2023 11:55 AM CDT Oxygen Saturation 97% 11/03/2023 11:55 AM CDT Inhaled Oxygen Concentration - - Weight 65.8 kg (145 lb) 11/03/2023 9:23 AM CDT Height 177.8 cm (5' 10 ) 11/03/2023 9:23 AM CDT Body Mass Index 20.81 11/03/2023 9:23 AM CDT Plan of Treatment Not on file Insurance [employer] [facility] Address: [address] [place] [phone] [employer] [facility] Address: [address] [place] [phone] Care Teams Caddy Packer Relationship Specialty Start Date End Date No, Physician PCP - General 11/03/23
--- OUTSIDE RECORDS SUMMARY | 2024-06-20 13:36 | XMS_ITS | Clinical Summary ---
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 Gender Identity Not on file Sexual Orientation Not on file Obstetrics History Last Filed Vital Signs Vital Sign Reading [...] 11/03/2023 9:23 AM CDT Plan of Treatment Health Maintenance Due Date Last Done Comments Depression Screening 1998 Hepatitis C Screening 1998 HPV Vaccines (1 - Male 3-dose series) 2013 Regular Well Visit/Exam 18-64 2016 Influenza Vaccine (#1) 2023 6, 02/05/2015, 03/09/2013, Additional history exists DTaP/Tdap/Td Vaccine (9 - Td or Tdap) 01/21/2026 01/22/2016, 07/31/2014, 11/24/2009, Additional history exists Hepatitis B Screening Completed 11/19/2001 , 1998, 1998 Varicella Vaccines Completed 07/31/2014, 0 06/27/2013, 01/06/2000 Pneumococcal vaccine <65 Aged Out No longer eligible based on patient's age to complete this topic Insurance [employer] [facility] H[facility]/PPO Address: [facility] [address] [place] [address] [employer] [facility]O Address: [address] [address] Care Teams Insurance Loss Assessor Relationship Specialty Start Date End Date No, Physician PCP - General 11/03/23
--- OUTSIDE RECORDS SUMMARY | 2024-06-20 13:36 | XMS_ITS | Clinical Summary ---
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 Gender Identity Not on file Sexual Orientation Not on file Plan of Treatment Health Maintenance Due Date Last Done Comments Hepatitis C Virus (HCV) Screening 1998 Human Papillomavirus (HPV) Immunization (1 - Male 3-dose series) 2013 Influenza Immunization (#1) 12/06/202301/04, 02/05/2015, 03/09/2013, Additional history exists SARS-COV-2 Immunization (2023- season) 2023 Respiratory Syncytial Virus (RSV) Immunization (Adult) (1 - 1-dose 75+ series) 2073 Hepatitis B Immunization Completed 002, 1998, 1998 DTaP/Tdap/Td Immunization Discontinued 2015, 07/31/2014, 11/24/2009, Additional history exists Meningococcal Immunization (ACWY) Completed 01/22/2016, 07/31/2014 TdaP Immunization Completed 01/22/2016, , 11/24/2009 Pneumococcal Immunization Combined Aged Out No longer eligible based on patient's age to complete this topic Rotavirus Immunization Aged Out No lo nger eligible based on patient's age to complete this topic
--- OUTSIDE RECORDS SUMMARY | 2024-06-20 13:36 | XMS_ITS | Clinical Summary ---
Author Organization [facility] Address [facility] [place] [address] Care Team Providers Care Liner Roll Changer Name Role Phone None, Provider MD Primary Care Provider Unavaila ble Allergies No known active allergies Medications DORIS Marques, (MEDROL DOSEPAK) 4 MG tablet Take 1 tablet (4 mg total) by mouth see administration instructions. 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 Gender Identity Not on file Sexual Orientation Not on file Last Filed Vital Signs Vital Sign Reading Time Taken Comments Blood Pressure 114/76 09/23/2023 11:40 AM CDT Pulse 70 09/23/2023 11:40 AM CDT Temperature 36.5 C (97.7 F) 09/23/2023 11:40 AM CDT Respiratory Rate 18 09/23/2023 11:40 AM CDT Oxygen Saturation 100% 09/23/2023 11:40 AM CDT Inhaled Oxygen Concentration - - Weight 65.8 kg (145 lb) 09/23/2023 11:40 AM CDT Height 180.3 cm (5' 11 ) 09/23/2023 11:40 AM CDT Body Mass Index 20.22 09/23/2023 11:40 AM CDT Plan of Treatment Health Maintenance Due Date Last Done Comments Annual Physical 2001 Pneumococcal Vaccine: Pediatrics (0 to 5 Years) and At-Risk Patients (6 to 64 Years) (1 of 2 - PCV) 2004 DTaP, Tdap and Td Vaccines (6 - Tdap) 2009 01/18/2003, 01/06/2000, 1998, Additional history exists HPV Vaccines (1 - Male 3-dose series) 2013 Hepatitis C 2016 Hepatitis B Vaccines (1 of 3 - 19+ 3-dose series) 2017 COVID-19 Vaccine (1 - season) 2023 Influenza Adult (#1) 2024 Meningococcal Vaccine Completed 01/22/2016, 015 Meningococcal B Vaccine Aged Out No l onger eligible based on patient's age to complete this topic RSV Immunizations Under 20 Months Aged Out No longer eligible based on patient's age to complete this topic Insurance [facility] [place] [address] Care Teams Liner Roll Changer Relationship Specialty Start Date End Date None, Provider, PCP - General 05/28/19
[2024-06-20 14:57] LABS: SARS-CoV-2 RNA PCR Negative (Negative)
[2024-06-20 18:09] VITALS: BP 129/79; PULSE 63; RESP 16; TEMP 36.3; O2SAT 100
--- NOTE | 2024-06-20 18:40 | PC.NURSE ---
Pt chart faxed to [facility]
--- NOTE | 2024-06-20 19:20 | PC.NURSE ---
Pt requesting his belongings, wants leave. RN informed pt at this time that is not an option. Pt sat back on bed, covered head
--- NOTE | 2024-06-20 19:26 | PC.NURSE ---
Pt was not accepted by [facility] due to pt not having insurance and not being willing to self pay.
--- NOTE | 2024-06-20 20:34 | PC.NURSE ---
[facility] has now accepted pt but states due to their doctor wanting pt to be a 1-1 they do not have the staff tonight.. intake stated they were hopeful they would have staff in the morning and pt would be able to transfer.
--- NOTE | 2024-06-21 00:27 | PC.NURSE ---
echo vascular technologistporfirio Wakefield alerted this RN that has begun to talk to himself, becoming agitated and appearing anxious. This RN spoke with SHUN Chávez who offered PO medication for pts anxiety. This plan was presented to pt, who refused stating you guys just want to push pills on me, I dont do pills . This RN educated pt on the benefits of medication for his symptoms, pt still refused. Pt denied wanting to harm himself at this time. Denies hallucinations. PA notified.
--- NOTE | 2024-06-21 07:20 | PC.NURSE ---
RN offered to order meal tray for pt, pt declined
[2024-06-21 07:40] VITALS: BP 129/85; PULSE 60; RESP 16; O2SAT 100
--- NOTE | 2024-06-21 08:46 | PC.NURSE ---
scientific investigator informed this RN that pt stated You might as well call the check examiner and have them waiting for me
--- NOTE | 2024-06-21 09:05 | PC.NURSE ---
Pt stating I just want some fucking fresh air and Why can't you just give me my shit This RN was able to educate of his safety needs and able to deescalate
--- NOTE | 2024-06-21 09:12 | PC.NURSE ---
Pt walking out into hallway and ambulance bay, security called, pt ambulated back to his room using steady gait
[2024-06-21 09:48] VITALS: BP 123/85; PULSE 65; RESP 16; TEMP 36.3; O2SAT 100
--- NOTE | 2024-06-21 10:11 | PC.NURSE ---
Pt ambulated out of ambulance bay using steady gait, [place] [employer] notified
--- NOTE | 2024-06-21 10:31 | PC.NURSE ---
Pt escorted back into room by PD
--- NOTE | 2024-06-21 11:30 | PC.NURSE ---
Pt. Mom at bedside. Mom and pt. updated that pt. has been accepted at [facility], but we are waiting to hear back from their aircraft cleaning supervisor as to when the pt. can go there d/t pt. needing to be a 1:1. Crisis also on site stating they have spoken with [facility] and provided update to pt. and pt. Mom. All questions answered by this RN and crisis at this time.
--- NOTE | 2024-06-21 11:45 | PC.NURSE ---
Cecilia with [facility] updated this RN that pt. has officially been accepted and will be given a bed. [facility] will call for pt. report. [facility] instructed [facility] to not set up transport yet. This RN should call [phone] to give report to [facility] at 1240 they have not called yet for report. Pt. and Mom updated.
--- NOTE | 2024-06-21 11:56 | PC.NURSE ---
Lunch tray ordered for pt.
[2024-06-21 12:17] VITALS: BP 125/93; PULSE 60; RESP 16; O2SAT 100
--- NOTE | 2024-06-21 12:56 | PC.NURSE ---
[facility] states that [facility] needs to review the pt. packet and cannot take report at this time but will call back to receive report from this RN.
--- NOTE | 2024-06-21 14:56 | PC.NURSE ---
Report called to ANNEL Brito at [facility]. All questions answered. Pt. to be transported via EMS. Mom and pt. updated.
--- NOTE | 2024-06-21 15:35 | PC.NURSE ---
Nely, RN at [facility] notified that pt. has left via [facility]. Report given to [facility] by this RN. All questions answered.
[2024-06-21 15:37] VITALS: BP 123/82; PULSE 78; RESP 16; TEMP 36.9; O2SAT 99
== END 2024-06-21 15:40 ==
PROVIDERS: Registered Nurse; Emergency Provider Emergency Medicine
DX: T71.162A Asphyxiation due to hanging, intentional self-harm, initial encounter (principal); Z11.52 Encounter for screening for COVID-19; J45.990 Exercise induced bronchospasm; F17.290 Nicotine dependence, other tobacco product, uncomplicated
CPT/HCPCS: 36415; 70450; 70498; 80053; 80143; 80179; 80307; 81001; 82077; 84443; 85025; 87635; 93005; 99285; Q9967

== ENCOUNTER 2025-02-12 15:06 | Emergency (ER) | payer OTHER, SELFPAY ==
[2025-02-12 15:14] VITALS: BP 133/81; PULSE 84; RESP 18; TEMP 36.6; O2SAT 100
--- NOTE | 2025-02-12 15:15 | ED.DENTAL ---
HPI - Dental/Oral General Chief complaint: Dental/Oral Stated complaint: Dental Pain Time Seen by Provider: 02/12/25 15:17 Source: patient Mode of arrival: ambulatory Limitations: no limitations History of Present Illness HPI Narrative: 24-year-old male presents with concern of for toothache on the right lower side. Reports he has a dentist appointment at the end of the month. He reports he has taken ibuprofen without relief. Reports right jaw pain. MD Complaint: tooth pain Related Data Allergies Allergy/AdvReac Type Severity Reaction Status Date / Time No Known Allergies Allergy Mild Verified 02/12/25 15:22 Review of Systems Review of Systems: CONSTITUTIONAL: Denies malaise, chills, sweats, or fever. EYES: Denies visual changes ENT: Denies rhinorrhea, congestion, sinus pain, otalgia or sore throat. Reports right lower dental pain CARDIOVASCULAR: Denies chest pain, palpitations RESPIRATORY: Denies cough or dyspnea. SKIN: Denies rash or itching. MUSCULOSKELETAL: Denies myalgia. NEUROLOGIC: Denies numbness, weakness, or headache. All systems reviewed & are unremarkable except as noted in HPI and below PMFSH Past Medical History Medical History Exercise-induced asthma Healthy adult Surgical History Surgical History No pertinent past surgical history Family History Family History Mother Family history non-contributory Social History Social History Tobacco type: e-cigarettes/vaping Alcohol intake: never Substance use type: marijuana Gender identity (if verbalized by the patient): Male Spiritual care concerns: No Comments At time of signature, agree with nursing past medical, surgical, social and family history. There is no relevant family history pertinent to the presenting complaint Exam Narrative: GENERAL: Well-appearing, well-nourished, and in no acute distress. HEAD: Normocephalic, atraumatic. EYES: PERRLA, sclera clear ENT: Nares clear, no rhinorrhea or epistaxis. Mucous membranes moist. Oropharynx without erythema or lesions. Tonsils not enlarged and without exudate. Missing teeth, broken teeth, caries. No jaw swelling noted NECK: Supple. No lymphadenopathy. CHEST: No respiratory distress. Speaks in full sentences. HEART: Regular rate and rhythm. SKIN: Warm, dry, no visible rash. NEURO: Alert and oriented x3. PSYCH: Normal mood and affect Course Course Emergency Course: Patient is aware of diagnosis, understands and agrees to treatment plan. Anticipatory guidance given. Patient agrees to follow-up as directed and is aware of reasons to seek care at the emergency department. Portions of this record may have been created with voice recognition software Level of Care: [facility] Visit Vital Signs Vital signs: Vital Signs Temperature 97.8 F 02/12/25 15:14 Pulse Rate 84 02/12/25 15:14 Respiratory Rate 18 02/12/25 15:14 Blood Pressure 133/81 02/12/25 15:14 Pulse Oximetry 100 02/12/25 15:14 Oxygen Delivery Room Air 02/12/25 15:14 Temperature 97.8 F 02/12/25 15:14 Pulse Rate 84 02/12/25 15:14 Respiratory Rate 18 02/12/25 15:14 Blood Pressure 133/81 02/12/25 15:14 Pulse Oximetry 100 02/12/25 15:14 Oxygen Delivery Room Air 02/12/25 15:14 Reviewed. MDM - Dental/Oral MDM Narrative Medical decision making narrative: I evaluated this in the [facility]. History is obtained from patient who is an independent historian and physical exam was performed.? Available medical records were reviewed. ? Exam findings and relevant testing show no acute concerns or changes; patient is non-toxic appearing and is in no distress. Patients pain and complaint coupled with physical findings are consistant with dentalgia. There are no focal signs of space occupying lesions that are compromising to the airway; no dysphagia, odynophagia, dysphonia, or dyspnea. No uvular deviation or soft palate edema. Patient is non-toxic appearing. The floor of the mouth is soft with no signs of Vinnie's Angina; no induration below mandible, no neck pain. Patient is without trismus or drooling and able to swallow secretions. Patient is felt appropriate for discharge home with dental follow up. ? Differential diagnosis and treatment plan were discussed with the patient. Patient agrees with discussion and after shared medical decision making agrees with plan of care. All questions were answered to the patient's satisfaction. Patient is appropriate for outpatient treatment and follow-up. Differential Diagnosis Differential diagnosis: Likely gingival abscess, dental caries, toothache, dental abscess, fracture of tooth and aphthous ulcer Critical Care Time Critical Care Time Critical Care Time: No Discharge Plan Discharge Clinical Impression: Toothache Patient Disposition: Home Condition: Stable Instructions: Antibiotic Form, Toothache (ED) Additional Instructions: Take antibiotic as directed Avoid temperature extremes May apply heat or ice to the face Gentle brushing and flossing Take 2 extra strength Tylenol, 4 ibuprofen, 80 mg of caffeine at same time. You can do this every 6 hours. Do not do this for more than 2 - 3 days. You can substitute 25 mg Benadryl at nighttime for caffeine to help you sleep. Do this for no more than 3 days. Follow-up with the dentist as soon as possible - see the list provided Patient Language: Ugandan Prescriptions: New clindamycin HCl 300 mg capsule 300 mg PO Q8H 7 Days Qty: 21 0RF Follow-up/Referrals: PHYSICIAN,SELF SEALING FUEL TANK BUILDER [Primary Care Provider, Internal Medicine] Stand Alone Forms: Work/School Release IP Time of Disposition: 15:22
== END 2025-02-12 15:26 | disposition home or self-care (01) ==
PROVIDERS: Emergency Provider Nurse Practitioner
DX: K08.89 Other specified disorders of teeth and supporting structures (principal); F17.290 Nicotine dependence, other tobacco product, uncomplicated; F12.90 Cannabis use, unspecified, uncomplicated; J45.990 Exercise induced bronchospasm
CPT/HCPCS: 99213; G0463